=== PATIENT | female | born 1975 | race Caucasian/White ===

== ENCOUNTER → 2023-10-12 12:35 | Outpatient (REF) | payer OTHER, SELFPAY | LOC: WDC 12:35 | PROVIDERS: ATTENDING PHYSICIAN Obstetrics & Gynecology; FAMILY PHYSICIAN Internal Medicine | DX: Z12.31 Encounter for screening mammogram for malignant neoplasm of breast (principal) | CPT/HCPCS: 77063; 77067 ==

== ENCOUNTER → 2024-09-30 13:14 | Outpatient (REF) | payer OTHER, SELFPAY | LOC: RAD 13:14 | PROVIDERS: ATTENDING PHYSICIAN Specialist; FAMILY PHYSICIAN Internal Medicine; REFERRING PHYSICIAN Internal Medicine Endocrinology, Diabetes & Metabolism | DX: K80.20 Calculus of gallbladder without cholecystitis without obstruction (principal); E04.1 Nontoxic single thyroid nodule; K62.89 Other specified diseases of anus and rectum | CPT/HCPCS: 72220; 76536; 76700 ==

== ENCOUNTER → 2024-10-03 10:14 | Outpatient (REF) | payer OTHER, SELFPAY | LOC: PET 10:14 | PROVIDERS: ATTENDING PHYSICIAN Internal Medicine Hematology & Oncology | DX: D47.Z2 Castleman disease (principal); D47.2 Monoclonal gammopathy | CPT/HCPCS: 78816; A9552 ==

== ENCOUNTER → 2024-11-29 14:01 | Outpatient (REF) | payer MEDICARE, OTHER, SELFPAY | LOC: WDC 14:01 | PROVIDERS: ATTENDING PHYSICIAN Obstetrics & Gynecology; FAMILY PHYSICIAN Internal Medicine | DX: Z12.31 Encounter for screening mammogram for malignant neoplasm of breast (principal); Z82.69 Family history of other diseases of the musculoskeletal system and connective tissue; M89.8X9 Other specified disorders of bone, unspecified site; M81.8 Other osteoporosis without current pathological fracture | CPT/HCPCS: 77063; 77067; 77080 ==

== ENCOUNTER → 2024-12-06 10:50 | Outpatient (REF) | payer MEDICARE, OTHER, SELFPAY | LOC: PAVMRI 10:50 | PROVIDERS: ATTENDING PHYSICIAN Psychiatry & Neurology Neurology; FAMILY PHYSICIAN Internal Medicine; OTHER PHYSICIAN Internal Medicine Endocrinology, Diabetes & Metabolism | DX: E23.7 Disorder of pituitary gland, unspecified (principal); M54.16 Radiculopathy, lumbar region; G61.81 Chronic inflammatory demyelinating polyneuritis | CPT/HCPCS: 70553; 72158; A9575 ==